=== PATIENT | female | born 1960 | race Caucasian/White ===

== ENCOUNTER 2023-03-18 09:44 | Outpatient (AMB) | payer OTHER, SELFPAY ==
[2023-03-18 09:55] VITALS: BP 122/80; PULSE 90; BMI 27.5
--- NOTE | 2023-03-18 09:55 | A.OFFVIS_ITS ---
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 She was accompanied by her . She has been active traveling between 2 of her children, 1 in [place] and 1 in [place]. She has been mourning the passing of her 2 brothers due to coronary artery disease. She is compliant with her medications. Her blood pressure has been well controlled. She denies any chest pain, shortness of breath, proximal nocturnal dyspnea, orthopnea, pedal edema. She has no flank pain or hematuria. She has not had any renal stones lately. She has not had any urinary tract infection and has not had any antibiotics or any other medication changes. She monitors blood pressure at home. She tries to maintain good hydration. She avoids nonsteroidal anti- inflammatory medications. Her renal functions are stable at baseline. She feels well. [facility] Medical History (Updated 03/19/23 @ 05:42 by Bharat Teran MD) Calculus of kidney Hypertension Family History (Updated 03/18/23 @ 09:59 by Jo Castellanos MA) Father Diabetes Brother Diabetes Hypertension Social History (Updated 03/18/23 @ 09:58 by Jo Castellanos MA) Alcohol intake: current Patient Tobacco Use Status: Never used Tobacco Physical Exam Vital Signs: Last Vital Signs Pulse 90 03/18/23 09:55 BP 122/80 03/18/23 09:55 BMI result Body Mass Index 27.5 Const General: comfortable and no acute distress Orientation/consciousness: patient oriented x3 HEENT Head: Yes normocephalic Mouth: Normal oral and palatal mucosa present Eyes EOM: EOMs intact bilaterally Neck Neck: Yes supple Resp Auscultation: clear to auscultation bilaterally Cardio Jugular venous distension: no JVD Rate: regular rate GI Palpation (GI): Soft to palpation Auscultation: normal bowel sounds General: Yes no CVA tenderness Back/Spine/Pelvis Back: no CVA tenderness Skin General skin exam: no rashes or lesions noted Neuro General: patient oriented x3 and moves all extremities Extrem General: Yes no pedal edema Assessment & Plan Assessment & Plan (1) Calculus of kidney: Code(s): N20.0 - Calculus of kidney (2) Hypertension: Code(s): I10 - Essential (primary) hypertension Qualifiers: Hypertension type: primary hypertension Qualified Code(s): I10 - Essential (primary) hypertension Plan Carrie has longstanding hypertension which is well controlled on losartan 100 mg and chlorthalidone 25 mg daily. She tries to maintain a low-sodium diet and good hydration. She avoids nonsteroidal anti-inflammatory medications if at all possible. She has no symptoms of coronary ischemia or vascular disease. She has no orthostatic symptoms. Her volume status is optimal. Her lipid profile is acceptable. I did not make any medication changes today. All her recent blood work data were discussed in detail. Answered all questions. I plan to do a follow-up renal ultrasound as well as Doppler of her renal arteries after her next visit. Time spent during encounter, retrieval of data and documentation 24 minutes. Orders: Orders Electrolytes 03/18/23 I10 - Essential (primary) hypertension, N20.0 - Calculus of kidney Calcium 03/18/23 I10 - Essential (primary) hypertension, N20.0 - Calculus of kidney Protein Creatinine Ratio, Ur 03/18/23 I10 - Essential (primary) hypertension, N20.0 - Calculus of kidney Blood Urea Nitrogen 03/18/23 I10 - Essential (primary) hypertension, N20.0 - Calculus of kidney Creatinine 03/18/23 I10 - Essential (primary) hypertension, N20.0 - Calculus of kidney UA and rflx microscopic 03/18/23 N20.0 - Calculus of kidney Coding Level of Care Code Est Pt Level 3 (94943) Diagnoses Calculus of kidney N20.0 Primary hypertension I10 Hypertension type: primary hypertension
== END 2023-03-18 11:01 | disposition home or self-care (01) ==
PROVIDERS: PCP Internal Medicine; Visit Provider Internal Medicine Nephrology
DX: N20.0 Calculus of kidney (principal); I10 Essential (primary) hypertension
CPT/HCPCS: 99213

== ENCOUNTER → 2023-03-18 09:44 | Outpatient (BNVA) | payer OTHER, SELFPAY | PROVIDERS: PCP Internal Medicine; Visit Provider Internal Medicine Nephrology ==

== ENCOUNTER 2023-05-05 10:59 | Outpatient (AMB) | payer OTHER, SELFPAY ==
[2023-05-05 11:10] VITALS: BP 122/70; PULSE 97; O2SAT 99; BMI 27.6
--- NOTE | 2023-05-05 11:10 | HO.NEPHOV ---
HPI HPI Comments History of Present Illness Details Caty was seen today at her request. Recently she had an episode of palpitation which spontaneously resolved. She denies taking excessive alcohol or any caffeinated products. She has had such episode in the past as well. Back in 2020 she underwent a Holter monitor which was reportedly normal. During this episode she did not have any chest pain no nausea vomiting no cough no fever. At present she is feeling fine. She is planned to go to [place] for 3 months to spend time with her daughter. She has lost 2 of her brothers recently from coronary events. There is some degree of stress/anxiety, which is understandable [facility] Medical History (Updated 03/19/23 @ 05:42 by Bharat Teran MD) Calculus of kidney Hypertension Family History Father Diabetes Brother Diabetes Hypertension Social History Alcohol intake: current Patient Tobacco Use Status: Never used Tobacco Vital Signs 05/05/23 11:10 Height 5 ft 9 in Weight 187 lb BMI 27.6 BP 122/70 Blood Pressure Location Rt brachial Position Sitting Pulse 97 Pulse Source Pulse Oximeter Pulse Oximetry (%) 99 Oxygen Delivery Method Room Air Physical Exam Vital Signs: Last Vital Signs Pulse 97 05/05/23 11:10 BP 122/70 05/05/23 11:10 Pulse Ox 99 05/05/23 11:10 Oxygen Delivery Method Room Air 05/05/23 11:10 BMI result Body Mass Index 27.6 Const General: comfortable Nutritional Appearance: well nourished Orientation/consciousness: patient oriented x3 HEENT Head: No normal to inspection Mouth: moist mucous membranes Neck Neck: Yes supple and Yes no JVD Resp Auscultation: clear to auscultation bilaterally, no rales and rub present Cardio Jugular venous distension: no JVD Palpation: no palpable S3 and no palpable S4 Heart sounds: no rubs GI Palpation (GI): Soft to palpation and nontender Percussion: No Fluid wave present General: Yes no CVA tenderness Back/Spine/Pelvis Back: no CVA tenderness Skin General skin exam: no rashes or lesions noted Neuro General: patient oriented x3 Extrem General: Yes no pedal edema and No clubbing Assessment & Plan Assessment & Plan (1) Hypertension: Code(s): I10 - Essential (primary) hypertension Qualifiers: Hypertension type: primary hypertension Qualified Code(s): I10 - Essential (primary) hypertension (2) Calculus of kidney: Code(s): N20.0 - Calculus of kidney Plan Caty has well-controlled hypertension. I would continue with current dose of chlorthalidone and losartan. Encouraged her to stay on low-sodium diet and maintain adequate fluid intake. Based on the history I believe she probably had episodes of paroxysmal atrial fibrillation. Currently she is in sinus rhythm. She has an [employer] watch and I have encouraged her to keep monitoring her heart rate. If she has another episode of palpitations she has been advised to go to the emergency room. In the meantime once she returns from her trip, she will benefit from Holter monitoring/cardiac evaluation. I have also asked her to take baby aspirin in the meantime. Coding Level of Care Code Est Pt Level 3 (89724) Diagnoses Primary hypertension I10 Hypertension type: primary hypertension Calculus of kidney N20.0 Results Reviewed Nephrology Results: No Data to Display
== END 2023-05-05 13:53 | disposition home or self-care (01) ==
LOC: HO.HKAS 10:59
PROVIDERS: PCP Internal Medicine; Visit Provider Internal Medicine Hypertension Specialist
DX: I10 Essential (primary) hypertension (principal); N20.0 Calculus of kidney
CPT/HCPCS: 99213

== ENCOUNTER → 2023-05-05 10:59 | Outpatient (BNVA) | payer OTHER, SELFPAY | PROVIDERS: PCP Internal Medicine; Visit Provider Internal Medicine Hypertension Specialist ==